=== PATIENT | female | born 1990 | race Caucasian/White ===

== ENCOUNTER 2024-04-04 12:07 | Emergency (ER) | payer OTHER, SELFPAY ==
[2024-04-04 12:09] VITALS: BP 125/89
--- NOTE | 2024-04-04 12:20 | ED.GENMED ---
History of Present Illness
General
Chief Complaint: Eye Problems
Source: patient
Exam Limitations: none
Time Seen by Provider: 04/04/24 12:19
Nursing documentation reviewed up to this point in time: agreed with
History of Present Illness
History of Present Illness:
33 yo female with hx micro adenoma dx 3 yrs ago, presents with sudden left eye vision change an hour ago and then similar change in right eye 30 minutes ago. Developed sudden crescent of zig zag flashing light lateral aspect left eye visual field,
then similar in right eye that has since subsided. Denies H/A or recent head trauma. Denies nausea or blurry or double vision.
Past History
Past History
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
ED Past Surgical History: Tonsilectomy
Social History
Tobacco: Non-smoker
Alcohol: None
Drug: None
Personal:
Living: with family
Employment: Employed
Review of Systems
Review of Systems
Allergies reviewed?: Yes
All Other Systems: ROS reviewed and negative except as documented in HPI and ROS
Constitutional: Denies fever or fatigue
EENT: Reports other (visual changes)
Respiratory: Denies trouble breathing
Cardiac: Denies palpitations
ABD/GI: Denies abdominal pain
: Denies dysuria or difficulty voiding
Musculoskeletal: Reports no symptoms
Skin: Reports no symptoms
Neurological: Denies dizzy, headache, weakness or numbness
Phy Exam
Physical Exam
Physical Exam:
GENERAL: No acute distress. A&Ox3.
CONSTITUTIONAL: Afebrile.
EYES: PERRL, conjunctivae normal, good red reflex bilaterally.
Neck: Supple
ENMT: moist mucus membranes, Pharynx nl, TMs normal
RESPIRATORY: Regular respirations, nonlabored, lungs clear.
CARDIOVASCULAR: Regular rate and rhythm, no murmurs, no rubs.
GI: Soft, nontender, normal BS
MUSCULOSKELETAL: Moves with ease. Well perfused.
SKIN: Warm, dry, pink
PSYCH: Normal mood and affect. Well kept, interactive and appropriate
NEUROLOGIC: Awake, alert and oriented. No focal neurological deficits. Finger to nose intact. Ambulating with steady gait.
Eye Exam
Eye Exam: PERRL, EOMI, cornea clear, conjunctiva normal, disc sharp, globe normal, visual acuity normal and visual alvarez normal
Right 20/: 25
Left 20/: 25
Both 20/: 25
Course
Orders/Labs/Results
Orders:
Orders
04/04/24 12:19
CT Head W/o Iv Contrast Urgent
Comment:
Reason For Exam: visual changes bilaterally
Vital Signs
Initial and Last Documented VS:
Initial Vital Signs
Temp Pulse Resp BP Pulse Ox
98.1 F 66 18 125/89 97
04/04/24 12:09 04/04/24 12:09 04/04/24 12:09 04/04/24 12:09 04/04/24 12:09
Last Documented Vital Signs
Temp Pulse Resp BP Pulse Ox
98.1 F 66 18 125/89 97
04/04/24 12:09 04/04/24 12:09 04/04/24 12:09 04/04/24 12:09 04/04/24 12:09
MDM/Problems Addressed
Differential Diagnosis Includes:
ocular migraine, tumor
MDM/Problems Addressed:
33 yo female with hx micro adenoma dx 3 yrs ago, presents with sudden left eye vision change an hour ago and then similar change in right eye 30 minutes ago. Developed sudden crescent of zig zag flashing light lateral aspect left eye visual field,
then similar in right eye that has since subsided. Denies H/A or recent head trauma. Denies nausea or blurry or double vision.
Head CT neg
Neuro exam is normal
1:00 p.m.
Pt states symptoms are gone completely after Ibuprofen 45 minutes ago
Most likely ocular migraine
*Critical Care Note
Total Time (30-74mins, 75-104mins- exclusive of procedures): Not Applicable
ED Attending Note
-
Portions of this chart may have been created with voice recognition software.� Occasional wrong word or��sound alike� substitutions may have occurred due to the inherent limitations of voice recognition software.
Discharge Plan
Departure
Patient Disposition: Home (Routine Discharge)
Date of Disposition: 04/04/24
Time of Disposition: 13:06
Patient with high blood pressure during this ER visit?: No
Condition: Good
Discharge Problem:
Ocular migraine
Instructions: Migraine in adults
Prescriptions:
No Action
prednisone 10 mg Tablet
See Rx Instructions .ROUTE .COMPLEX Qty: 30 0RF
Rx Instructions:
Take By Mouth:
40 mg daily x3 days, 30 mg daily x3 days,
20 mg daily x3 days, 10 mg daily x3 days.
albuterol sulfate 2.5 mg /3 mL (0.083 %) solution for nebulization
2.5 mg inhalation Q4H PRN (Reason: shortness of breath or wheezing) Qty: 90 0RF
Referrals:
UNKNOWN - PT DOES,NOT KNOW [Family Provider] -
Activity Restrictions/Additional Instructions:
As we discussed, your head CT is normal. You most likely had an ocular migraine.
Interventions
Interventions:
*Risk Screen - Suicide Last Done: 04/04/24 12:09
*General Assessment Last Done: 04/04/24 12:09
*Neglect/Abuse Screening Last Done: 04/04/24 12:09
ED- Fall Risk Assessment Last Done: 04/04/24 13:11
*ED COVID-19 Vaccine History Last Done: 04/04/24 13:11
*Nursing Disposition Last Done: 04/04/24 13:11
Discharge Date and Time
Discharge Date/Time: 04/04/24 13:12
Print Language: [place]
[2024-04-04 12:41] LABS: Glucose - Point of Care 82 mg/dl (70-99)
== END 2024-04-04 13:12 | disposition home or self-care (01) ==
LOC: EMR 12:07
PROVIDERS: EMERGENCY PHYSICIAN Student in an Organized Health Care Education/Training Program
DX: G43.109 Migraine with aura, not intractable, without status migrainosus (principal); Z86.018 Personal history of other benign neoplasm
CPT/HCPCS: 99284; 70450; 82962

== ENCOUNTER 2024-08-21 03:46 | Inpatient (IN) | payer OTHER, SELFPAY ==
[2024-08-20 23:05] VITALS: BP 107/85
[2024-08-20 23:16] VITALS: BMI 28.1
--- NOTE | 2024-08-20 23:20 | ED.GENMED ---
History of Present Illness
General
Chief Complaint: Abdominal Pain
Source: patient
Time Seen by Provider: 08/20/24 23:05
History of Present Illness
History of Present Illness:
33-year-old female presents to the emergency room complaining of severe abdominal pain. Patient states she began having abdominal discomfort at about 8:30 PM. Pain is increased in severity. She has vomited several times. No previous abdominal
operations. No urinary symptoms. Patient was unable to take any oral medication because she's vomiting.
Past History
Past History
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
ED Past Surgical History: Tonsilectomy
Social History
Tobacco: Non-smoker
Alcohol: None
Drug: None
Personal:
Living: with family
Employment: Employed
Phy Exam
Physical Exam
Physical Exam:
General: Awake, Alert, Oriented X3. No acute distress.
Vitals: unremarkable
Head: Atraumatic
Eyes: Pupils equal, EOMI
Throat: Airway intact, no exudates
Neck: Trachea midline
Lungs: Clear and equal b/l
Heart: Regular rate, no murmurs
Abd: Soft, diffusely tender to palpation, No pulsatile mass
Neuro: Nonfocal
Skin: Warm, dry, no rash
Extremities: pulses equal b/l, no edema
Course
Orders/Labs/Results
Orders:
Orders
08/20/24 23:07
HYDROmorphone [Dilaudid] 0.5 mg .ROUTE .STK-MED ONE
08/20/24 23:08
Ondansetron Injectable [Zofran] 4 mg .ROUTE .STK-MED ONE
08/20/24 23:13
Test Result ONCE
08/20/24 23:15
Iohexol [Omnipaque] See Protocol PO NOW STA
08/20/24 23:17
Complete Blood Count/With Diff Urgent
Comprehensive Metabolic Panel Urgent
HCG, Serum Qualitative Screen Urgent
Lipase Urgent
08/20/24 23:22
HYDROmorphone [Dilaudid] 0.5 mg IV NOW STA
08/20/24 23:31
HYDROmorphone [Dilaudid] 0.5 mg IV NOW STA
08/20/24 23:32
Ondansetron Injectable [Zofran] 4 mg IV NOW STA
08/21/24 00:19
HYDROmorphone [Dilaudid] 0.5 mg IV NOW STA
Ketorolac [Toradol] 15 mg IV NOW STA
Ondansetron Injectable [Zofran] 4 mg IV NOW STA
08/21/24 00:33
CT Abd/Pel (IV only)-DH only Urgent
Comment:
Reason For Exam: pain, n/v
Abnormal Lab Results
08/20/24
23:17
WBC 12.8 H 10^3/uL
(4.8-10.8)
Abs Immat Gran (auto) 0.1 H 10^3/uL
(0-0.05)
Absolute Neuts (auto) 9.2 H 10^3/uL
(1.4-6.5)
Absolute Monos (auto) 0.7 H 10^3/uL
(0.1-0.6)
Glucose 120 H mg/dl
(70-99)
Albumin 5.1 H g/dl
(3.5-5.0)
08/20/24 23:17
08/20/24 23:17
Vital Signs
Initial and Last Documented VS:
Initial Vital Signs
Pulse Ox
100
08/20/24 23:04
Last Documented Vital Signs
Pulse Resp BP Pulse Ox
76 16 121/65 98
08/21/24 02:00 08/21/24 02:00 08/21/24 02:00 08/21/24 02:00
ED Attending Note
-
Portions of this chart may have been created with voice recognition software.� Occasional wrong word or��sound alike� substitutions may have occurred due to the inherent limitations of voice recognition software.
Discharge Plan
Departure
Patient Disposition: Admit
Date of Disposition: 08/21/24
Time of Disposition: 02:05
Admit to: Med/Surg
Presentation/result/management discussed w/ accepting MD/DO: Hospitalist
Patient with high blood pressure during this ER visit?: No
Condition: Good
Discharge Problem:
Acute nausea with nonbilious vomiting, Adynamic ileus
Prescriptions:
No Action
prednisone 10 mg Tablet
See Rx Instructions .ROUTE .COMPLEX Qty: 30 0RF
Rx Instructions:
Take By Mouth:
40 mg daily x3 days, 30 mg daily x3 days,
20 mg daily x3 days, 10 mg daily x3 days.
albuterol sulfate 2.5 mg /3 mL (0.083 %) solution for nebulization
2.5 mg inhalation Q4H PRN (Reason: shortness of breath or wheezing) Qty: 90 0RF
Referrals:
UNKNOWN - PT NOT,INTERVIEWE [Family Provider] -
Activity Restrictions/Additional Instructions:
CT scan report suggests have an gastroenteritis or ileus. I would not push fluids at this time. Give your bowel some time to rest. Start with ice chips in the morning. Gradually increase your intake if you are tolerating it. Return to the
emergency room if you are unable to tolerate oral intake, the pain is unbearable refill your not doing well in any way.
Interventions
Interventions:
*Risk Screen - Suicide Last Done: 08/20/24 23:34
*General Assessment Last Done: 08/20/24 23:22
*Neglect/Abuse Screening Last Done: 08/20/24 23:34
ED- Fall Risk Assessment Last Done: 08/21/24 00:09
*ED COVID-19 Vaccine History Last Done: 08/20/24 23:21
ZW-Xzxddg-Wrsqkjgogf Assessment Last Done: 08/20/24 23:35
Discharge Date and Time
Print Language: [place]ESE
[2024-08-20] MEDS: DILAUDID 0.5 MG IV ×2 (23:30→23:31)
[2024-08-20] MEDS: OMNIPAQUE 50 ML PO (23:30)
[2024-08-20] MEDS: ZOFRAN 4 MG IV (23:32)
[2024-08-20 23:34] LABS: % Basophils 0.2 % (0-2); % Eosinophils 0.5 % (0-6); % Immature Granulocytes 0.4 % (0-0.5); % Lymphocytes 21.5 % (20.5-51.1); % Monocytes 5.2 % (1.7-9.3); % Neutrophils 72.2 % (42.2-75.2); Absolute Eosinophils 0.1 10^3/uL (0-0.7); Absolute Immature Granulocytes 0.1 10^3/uL (0-0.05); Absolute Lymphocytes 2.8 10^3/uL (1.2-3.4); Absolute Monocytes 0.7 10^3/uL (0.1-0.6); Absolute Neutrophils 9.2 10^3/uL (1.4-6.5); Hematocrit 40.5 % (37.0-47.0); Hemoglobin 13.4 g/dL (12.0-16.0); Mean Corp Hgb Conc. 33.1 g/dL (33.0-37.0); Mean Corpuscular Hgb 28.3 pg (27.0-31.0); Mean Corpuscular Volume 85.4 fL (81.0-99.0); Mean Platelet Volume 10.2 fL (7.4-10.4); Nucleated Red Blood Cells % 0 %; Platelet Count 279 10^3/uL (130-400); Red Blood Cell Count 4.74 10^6/uL (4.20-5.40); Red Cell Dist. Width 12.6 % (11.5-14.5); White Blood Cell Count 12.8 10^3/uL (4.8-10.8)
[2024-08-20 23:41] LABS: ALT (SGPT) 20 U/L (0-35); AST (SGOT) 27 U/L (14-36); Albumin 5.1 g/dl (3.5-5.0); Alkaline Phosphatase 75 U/L (38-126); Blood Urea Nitrogen 16 mg/dl (7-17); Calcium 9.8 mg/dl (8.4-10.2); Carbon Dioxide 24 mmol/L (22-30); Chloride 100 mmol/L (98-107); Estimated Creatinine Clearance 118 ml/min; Glucose 120 mg/dl (70-99); Lipase 57 U/L (23-300); Potassium 3.9 mmol/L (3.5-5.1); Sodium 136 mmol/L (135-145); Total Bilirubin 0.4 mg/dl (0.2-1.3); eGFR > 60.00
[2024-08-20 23:46] LABS: HCG, Serum Qualitative Screen Negative
[2024-08-21] VITALS (8 sets, daily range): BP systolic 83–122; BP diastolic 53–78; BMI 29.0
[2024-08-21] MEDS: ZOFRAN 4 MG IV ×3 (00:31→12:16)
[2024-08-21] MEDS: TORADOL 15 MG IV ×2 (00:31→20:33)
[2024-08-21] MEDS: DILAUDID 0.5 MG IV ×3 (00:32→15:57)
--- NOTE | 2024-08-21 03:30 | HPS.HSE ---
Family Physician
-
Family Physician: INTERVIEWE UNKNOWN - PT NOT
Chief Complaint
-
Abd Pain, N/V
History of Present Illness
Patient is a 33y F with PMH significant for pituitary microadenoma who presents to ED complaining of abd pain and N/V. Patient states that she started to have nausea and some crampy abdominal pain last PM. She has had multiple episodes of
forceful / projectile emesis throughout the day today with increasing amounts of diffuse abdominal pain - mostly on the R. Patient states that she had her last BM yesterday - but this was small volume and she had to strain to produce this. Patient
denies any prior history of similar symptoms.
She denies any fevers / chills, cough, dyspnea, etc.
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
Medical History
Past Medical History
Past Medical History: Reports Other
Additional Past Medical History:
Pituitary Microadenoma
Past Surgical History: Reports Other
Additional Past Surgical History:
T&A
Social History
Tobacco: Non-smoker
Alcohol: None
Drug: None
Personal:
Family History
Family History: Other (Father: HTN Mother: GERD / Cox's, A-Fib)
Allergies / Home Medications
Allergies reflects when Allergies were last updated in [facility].
Home Medications with original date entered in [facility]
Allergy/Medication List:
Allergies
Allergy/AdvReac Type Severity Reaction Status Date / Time
No Known Allergies Allergy Verified 08/21/24 00:25
Home Medications
No Meds [No Current Medications] 08/21/24
Review of Systems
-
History Source: Patient
A 12 point ROS was completed and negative except as noted: Yes
Constitutional: Denies Fever or Chills
Respiratory: Denies Cough or Trouble Breathing
Cardiac: Denies Chest Pain or Palpitations
Abdomen/GI: Reports Abdominal Pain, Nausea, Vomiting and Constipated
: Denies Dysuria, Frequency or Flank Pain
Musculoskeletal: Denies Joint Pain or Edema
Neurological: Denies Dizzy or Headache
Psych: Denies Depression or Anxiety
Physical Exam
Vital Signs
Vital Signs
Pulse Resp BP Pulse Ox
79 15 83/70 98
08/21/24 03:00 08/21/24 03:00 08/21/24 03:00 08/21/24 03:00
Physical Exam
General: Other (33y F in mild - moderate distress due to abdominal pain and nausea.)
HEENT: Moist mucous membranes and PERRLA
Respiratory: Clear; No Wheezes, Rales or Rhonchi
Cardiac: S1/S2 and Regular Rhythm; No Murmur
GI: Other (Abdomen is soft. Bowel sounds are diminished. Tenderness mostly on the R without rebound / guarding.)
Musculoskeletal: No Clubbing, No Cyanosis and No Edema
Neuro: AO x 3
Laboratory Results
-
08/20/24 23:17
08/20/24 23:17
Laboratory Results
Total Bilirubin 0.4 mg/dl (0.2-1.3) 08/20/24 23:17
AST 27 U/L (14-36) 08/20/24 23:17
ALT 20 U/L (0-35) 08/20/24 23:17
Alkaline Phosphatase 75 U/L (38-126) 08/20/24 23:17
Lipase 57 U/L (23-300) 08/20/24 23:17
Impression/Plan
-
A/P: Patient is a 33y F with PMH significant for pituitary microadenoma who presents to ED complaining of abdominal pain and N/V.
Adynamic Ileus / Functional Bowel Obstruction
- Admit for further evaluation and treatment.
- CT scan in the ED this evening shows significant bowel distention of the R colon and proximal into the mid-distal small bowel.
- No specific transition point / obstruction is identified.
- Stool throughout the L colon.
- Continue supportive care including antiemetics, pain control, IVFs, etc.
- Trial of enema to alleviate constipation / encourage passage of stool.
- Follow for clinical improvement.
- Consider NG decompression if persistent pain / nausea.
- GI evaluation for additional recommendations.
DVT Prophylaxis: SCDs
Code Status: Full
[2024-08-21] MEDS: COMPAZINE 10 MG IV (03:41)
[2024-08-21 04:17] LABS: Lactic Acid 1.1 mmol/L (0.7-2.0)
[2024-08-21] MEDS: NSS 1000 IV (06:13)
--- NOTE | 2024-08-21 06:28 | PTCARENOTE ---
Pt arrived at from ED at 0600. Pt was able to ambulate to bed. VSS. no complaints of pain. Pt nauseous (see mar). IV bolus infusing. oriented to room and call nicloe. bed in lowest position and locked. care ongoing.
[2024-08-21 07:22] LABS: Blood Urea Nitrogen 19 mg/dl (7-17); Calcium 8.3 mg/dl (8.4-10.2); Carbon Dioxide 23 mmol/L (22-30); Chloride 104 mmol/L (98-107); Estimated Creatinine Clearance > 125 ml/min; Glucose 105 mg/dl (70-99); Potassium 4.2 mmol/L (3.5-5.1); Sodium 136 mmol/L (135-145); eGFR > 60.00
[2024-08-21 07:41] LABS: Hematocrit 35.3 % (37.0-47.0); Hemoglobin 11.8 g/dL (12.0-16.0); Mean Corp Hgb Conc. 33.4 g/dL (33.0-37.0); Mean Corpuscular Hgb 28.6 pg (27.0-31.0); Mean Corpuscular Volume 85.7 fL (81.0-99.0); Red Blood Cell Count 4.12 10^6/uL (4.20-5.40); Red Cell Dist. Width 12.7 % (11.5-14.5); White Blood Cell Count 6.1 10^3/uL (4.8-10.8)
--- NOTE | 2024-08-21 08:01 | W.PN.HOSP.TC ---
Today's Communication/Plan
-
Clear liquid diet
If vomits consider NG tube
Supportive treatment
Assessment / Plan
Assessment / Plan
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 Had a nicole movement on 124. Small volume.
CT abdomen and pelvis-Mild circumferential wall thickening of proximal small bowel as described above. New. This may be peristalsis. Enteritis is possible as well. Differential diagnoses of bowel wall thickening include infection, inflammation and
less likely ischemia. No evidence of intestinal obstruction.
CVS: S1-S2 normal
Chest: CTA B/L
Abdomen: Soft, NT / Bowel sounds present
Extremities: No edema, normal pulses
# Nausea and vomiting
Possible gastroenteritis , norovirus
Unfortunately kits are not available for testing now. There are multiple cases in the hospital at present with norovirus
Symptomatic treatment
GI has been consulted
If vomiting is persisting consider NG tube decompression
Agree with clear liquid diet
# Constipation resolved
# History of pituitary tumor-diagnosed about 4 years ago when she all of a sudden started lactating. Prolactin level was high had seen endocrine they suggested that she could go on a medicine (? Bromocriptine).
She did not have a chance to follow-up. She never went on the medicine yet her prolactin levels came down.
Discussed with patient to follow-up with endocrine again and also get a repeat MRI and follow prolactin.
# DVT prophylaxis-SCDs
# Full code
Discussed with GI
Discussed with nursing
Anticipated Discharge: Within 24 hours
Subjective/Interval History
-
Date of Service: August 21, 2024
Objective Data
-
Labs:
Laboratory Results
08/20/24 08/21/24
23:17 06:05
WBC 12.8 H 6.1
Hgb 13.4 11.8 L
Hct 40.5 35.3 L
Plt Count 279 Pending
Sodium 136 136
Potassium 3.9 4.2
Chloride 100 104
Carbon Dioxide 24 23
BUN 16 19 H
Creatinine 0.8 0.6
Glucose 120 H 105 H
Calcium 9.8 8.3 L D
Total Bilirubin 0.4
AST 27
ALT 20
Alkaline Phosphatase 75
Vital Signs:
Vital Signs
Temp Pulse Resp BP Pulse Ox
99.2 F 92 16 98/61 96
08/21/24 07:00 08/21/24 07:00 08/21/24 07:00 08/21/24 07:00 08/21/24 07:00
--- NOTE | 2024-08-21 08:42 | CON.GI ---
Addendum entered and electronically signed by Suki Moya DO 08/21/24 14:56:
Patient seen examined independently of DIANA. I agree with her note with my additions below
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 She does have chronic GI
symptoms which are generally postprandial cramping nausea and diarrhea after a salty fatty or fried food or along with significant anxiety. This episode was different. The pain was diffuse along with pressure and bloating and dizziness found to
have an elevated white count of 12.8 along with a blood pressure of 83/70 and no fever but temperature in the 99s. Last episode of vomiting was this morning. Has persistent nausea but is improving. Has not had any diarrhea.
At baseline she has about 10 days of diarrhea a month. She already made an appointment with our office to discuss her chronic symptoms as well as her family history of Daley's and esophageal cancer.
She has been getting IV fluids. Her white count has improved to 6.1, her LFTs admission were normal. Her BUN at 19. Lipase normal at 57 negative test.
She did undergo a CT abdomen pelvis with IV contrast only due to the abdominal pain and vomiting. Liver, spleen, gallbladder and pancreas are unremarkable. Normal terminal ileum and bowel loops but did have some moderate circumferential wall
thickening of the proximal jejunum up roughly 20 cm in length. No evidence of obstruction. No p.o. contrast was given
# Nausea vomiting abdominal pain without diarrhea with 20 cm of proximal jejunal thickening
-- More likely viral due to the acute onset as well as multiple sick contacts while working in the emergency room, especially norovirus. Other etiologies could be inflammatory like Crohn's disease, vasculitis/other inflammatory issues however due
to the acuity this is most likely infectious.
-- Check stools for norovirus if she has any
-- Antiemetics and IV fluids
-- hopefully home tomorrow, treat with supportive care
-- Outpatient follow-up for her chronic symptoms and depending on her symptoms may consider repeat small bowel imaging
-- will see her tomorrow if symptoms persist, follow-up outpatient. States she already has an appointment
Original Note:
Consultation
-
Date/Time Consultation Requested: 08/21/24 0600
Date/Time Consultation Performed: 08/21/24 0840
Requesting Provider: Dom Huggins DO
Performing Provider: DIANA Fernandez, Suki Moya DO
Reason for Consultation: abdominal pain, nausea/ vomiting
Medical History
Chief Complaint / HPI
Chief Complaint: abdominal pain, nausea, vomiting
History of Present Illness:
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 Abdominal pain was diffuse with pressure in chest and + bloating and dizziness. On
admission noted with WBC 12.[address] pending but reported ileus picture with right colon and mid SB distention. Pt was given enema in ER with improvement. Pt admits to some chronic GERD and intermittent diarrhea and was planning
on GI follow up. She had hx EGD at age 12 with noted gastritis. No hx colonoscopy in past. Pt denies hematemesis or rectal bleeding.
Past Medical History
Past Medical History: Other (pituitary microadenoma )
Past Surgical History: Tonsilectomy
Social History
Tobacco: Non-Smoker
Alcohol: Occasional (rare)
Drug: None
Personal:
Living: With Family
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
Family History
Family History: Other (mother with hx daley's no family hx )
Allergies / Home Medications
Allergy/AdvReac Type Severity Reaction Status Date / Time
No Known Allergies Allergy Verified 08/21/24 00:25
�Medication �Instructions �Recorded
No Meds [No Current Medications] 08/21/24
Review of Systems
-
History Source: Patient
Constitutional: Reports Fatigue
EENT: Reports No Symptoms
Respiratory: Reports No Symptoms
Abdomen/GI: Reports Abdominal Pain, Nausea, Vomiting, Diarrhea and Constipated
: Reports No Symptoms
Musculoskeletal: Reports No Symptoms
Neurological: Reports Dizzy
Endocrine: Reports No Symptoms
Hematologic/Lymphatic: Reports No Symptoms
Vital Signs
Temp Pulse Resp BP Pulse Ox
99.2 F 92 16 98/61 96
08/21/24 07:00 08/21/24 07:00 08/21/24 07:00 08/21/24 07:00 08/21/24 07:00
Physical Exam
Exam
General: Well Developed, Well Nourished and No Apparent Distress
HEENT: Normocephalic
Respiratory: Clear
Cardiac: Regular Rhythm
GI: Soft, Non Distended and Tender (diffuse )
Musculoskeletal: No Clubbing and No Cyanosis
Skin: Warm and Dry
Neuro: Awake, Alert and AO x 3
Psych: Calm
Results
WBC 6.1 10^3/uL (4.8-10.8) 08/21/24 06:05
Hgb 11.8 g/dL (12.0-16.0) L 08/21/24 06:05
Hct 35.3 % (37.0-47.0) L 08/21/24 06:05
MCV 85.7 fL (81.0-99.0) 08/21/24 06:05
Plt Count 279 10^3/uL (130-400) 08/20/24 23:17
Absolute Neuts (auto) 9.2 10^3/uL (1.4-6.5) H 08/20/24 23:17
Sodium 136 mmol/L (135-145) 08/21/24 06:05
Potassium 4.2 mmol/L (3.5-5.1) 08/21/24 06:05
Chloride 104 mmol/L (98-107) 08/21/24 06:05
Carbon Dioxide 23 mmol/L (22-30) 08/21/24 06:05
BUN 19 mg/dl (7-17) H 08/21/24 06:05
Creatinine 0.6 mg/dL (0.6-1.0) 08/21/24 06:05
Calcium 8.3 mg/dl (8.4-10.2) L D 08/21/24 06:05
Total Bilirubin 0.4 mg/dl (0.2-1.3) 08/20/24 23:17
AST 27 U/L (14-36) 08/20/24 23:17
ALT 20 U/L (0-35) 08/20/24 23:17
Alkaline Phosphatase 75 U/L (38-126) 08/20/24 23:17
Lipase 57 U/L (23-300) 08/20/24 23:17
Diagnostic Image Results:
CT pending
Prior GI Procedures:
EGD: age 12 gastritis
Colonoscopy: none
Assessment / Plan
-
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 Abdominal pain was diffuse with pressure in chest and + bloating and dizziness. On
admission noted with WBC 12.[address] pending but reported ileus picture with right colon and mid SB distention. Pt was given enema in ER with some improvement. Pt admits to some chronic GERD and intermittent diarrhea and was
planning on GI follow up. She had hx EGD at age 12 with noted gastritis.
-acute onset of nausea, vomiting, abdominal pain, diarrhea with bloating and constipation
-Ct with right colon and SB distention
-hypotension
-leukocytosis
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
-pituitary adenoma
-chronic GERD
PLAN:
etiology of symptoms related to norovirus with sudden onset and likely work exposure, vs other infectious diarrhea, celiac with some chronic diarrhea vs other
check norovirus if able (per Dr. Hewitt there was shortage to testing kits in lab), check stool studies, celiac
await final reading of CT
ok for trial of clear as tolerated
if increase nausea and vomiting can place NGT
supportive care cont IVF
reviewed with nursing staff of isolation
OP GI follow up for chronic issues with GERD, diarrhea
reviewed with Dr. Hewitt
-
-
Thank you for consultation and allowing me to participate in the patient's care. Please call the communication professor GI physician during the after hours with any questions or concerns.
[2024-08-21] MEDS: LR 1000 IV ×3 (08:54→23:22)
[2024-08-21] MEDS: PROTONIX IV 40 MG IV (08:55)
[2024-08-21] MEDS: NSS (PRESERVATIVE FREE) 10 ML IV (08:55)
[2024-08-21 09:01] LABS: Mean Platelet Volume 10.1 fL (7.4-10.4); Platelet Count 183 10^3/uL (130-400)
--- NOTE | 2024-08-21 11:41 | CM ---
CM following re: discharge planning.
Reviewed pt's chart, met with pt.
Pt is a 33 year old female, admitted with primary dx of acute onset of nausea, vomiting, abdominal pain, diarrhea with bloating and constipation.
Pt reports she lives with 1SH, no steps, has no children. Pt described herself as independent in all [employer], drives, works.
PCP: Yelena Marquez
Pharmacy: [facility]
D/C plan: home with anticipated no needs. Family to transport at discharge.
CM will follow with discharge plan updates as needed.
[2024-08-21] MEDS: TYLENOL 650 MG PO (15:58)
[2024-08-21 17:11] LABS: Vitamin D, 25-OH*** 17.2 ng/mL (30-80)
[2024-08-21 17:24] LABS: TSH 0.77 uIU/ml (0.47-4.68)
[2024-08-22 03:35] LABS: IgA 269 mg/dl (70-400)
[2024-08-22 07:30] VITALS: BP 109/59
[2024-08-22] MEDS: NSS (PRESERVATIVE FREE) 10 ML IV (08:00)
[2024-08-22] MEDS: PROTONIX IV 40 MG IV (08:00)
[2024-08-22] MEDS: LR 1000 IV (08:04)
[2024-08-22 08:35] LABS: Hemoglobin 10.7 g/dL (12.0-16.0); Mean Corp Hgb Conc. 32.4 g/dL (33.0-37.0); Mean Corpuscular Hgb 28.5 pg (27.0-31.0); Mean Corpuscular Volume 87.8 fL (81.0-99.0); Mean Platelet Volume 10.3 fL (7.4-10.4); Platelet Count 159 10^3/uL (130-400); Red Blood Cell Count 3.76 10^6/uL (4.20-5.40); White Blood Cell Count 3.4 10^3/uL (4.8-10.8)
[2024-08-22 09:07] LABS: ALT (SGPT) 13 U/L (0-35); AST (SGOT) 21 U/L (14-36); Albumin 2.9 g/dl (3.5-5.0); Alkaline Phosphatase 45 U/L (38-126); Blood Urea Nitrogen 10 mg/dl (7-17); Carbon Dioxide 25 mmol/L (22-30); Chloride 104 mmol/L (98-107); Estimated Creatinine Clearance > 125 ml/min; Glucose 86 mg/dl (70-99); Potassium 3.9 mmol/L (3.5-5.1); Sodium 133 mmol/L (135-145); Total Bilirubin 0.3 mg/dl (0.2-1.3); Total Protein 5.3 g/dl (6.3-8.2); eGFR > 60.00
[2024-08-22] MEDS: TORADOL 15 MG IV (09:55)
--- NOTE | 2024-08-22 11:20 | W.PN.HOSP.TC ---
Addendum entered and electronically signed by Jair Hewitt MD 08/22/24 11:23:
Vitamin D deficiency-replace
Slight drop in hemoglobin likely hemodilution with IV fluids no bleeding
Original Note:
Today's Communication/Plan
-
Full liquids for breakfast and low residue for lunch
If tolerating discharge
Assessment / Plan
Assessment / Plan
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 Had a nicole movement on 124. Small volume.
CT abdomen and pelvis-Mild circumferential wall thickening of proximal small bowel as described above. New. This may be peristalsis. Enteritis is possible as well. Differential diagnoses of bowel wall thickening include infection, inflammation and
less likely ischemia. No evidence of intestinal obstruction.
CVS: S1-S2 normal
Chest: CTA B/L
Abdomen: Soft, NT / Bowel sounds present
Extremities: No edema, normal pulses
# Nausea and vomiting
Possible gastroenteritis , norovirus
Vomiting and diarrhea resolved therefore not able to collect a sample
Advance diet to full liquids for breakfast and low residual for lunch
# Constipation resolved
# History of pituitary tumor-diagnosed about 4 years ago when she all of a sudden started lactating. Prolactin level was high had seen endocrine they suggested that she could go on a medicine (? Bromocriptine).
She did not have a chance to follow-up. She never went on the medicine yet her prolactin levels came down.
Discussed with patient to follow-up with endocrine again and also get a repeat MRI and follow prolactin.
# DVT prophylaxis-SCDs
# Full code
Discussed with GI
Discussed with nursing
Anticipated Discharge: Today
Subjective/Interval History
-
Date of Service: August 22, 2024
Objective Data
-
Labs:
Laboratory Results
08/22/24
07:30
WBC 3.4 L
Hgb 10.7 L
Hct 33.0 L
Plt Count 159
Sodium 133 L
Potassium 3.9
Chloride 104
Carbon Dioxide 25
BUN 10
Creatinine 0.6
Glucose 86
Calcium 8.0 L
Total Bilirubin 0.3
AST 21
ALT 13
Alkaline Phosphatase 45
Vital Signs:
Vital Signs
Temp Pulse Resp BP Pulse Ox
97.9 F 66 18 109/59 97
08/22/24 07:30 08/22/24 07:30 08/22/24 07:30 08/22/24 07:30 08/22/24 07:30
I&O
08/21/24 08/22/24 08/23/24
06:59 06:59 06:59
Intake Total 2220 / 2220 480 / 480
Balance 2220 / 2220 480 / 480
--- NOTE | 2024-08-22 11:23 | W.DS.TRANS ---
Addendum entered and electronically signed by Jair Hewitt MD 08/23/24 08:32:
Dictation- [id number]
Original Note:
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
-
Discharge Instructions:
Discharge Diagnosis/Procedures Gastroenteritis
Pituitary tumor
Diet As tolerated
Activity As tolerated
Driving Restrictions As prior to admission
Instructions:
Stand-Alone Forms:
Changes to Home Medications: Yes
Discharge Medications:
DC Medications w/original date entered in [employer]
cholecalciferol (vitamin D3) 50 mcg (2,000 unit) capsule 50 mcg PO DAILY Supplement #30 caps 08/22/24
Home Medication Changes
vit d new
Pending Results: No
[2024-08-22] MEDS: DRISDOL (VITAMIN D2) 50000 UNITS PO (12:03)
--- NOTE | 2024-08-22 12:42 | W.PN.GI.CBS2 ---
Today's Communication / Plan
-
Tolerating diet
Ok from GI perspective for hosp d/c
She will FU with GI OP basis
Assessment / Plan
-
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 Abdominal pain was diffuse with pressure in chest and + bloating and dizziness. On
admission noted with WBC 12.[address] pending but reported ileus picture with right colon and mid SB distention. Pt was given enema in ER with some improvement. Pt admits to some chronic GERD and intermittent diarrhea and was
planning on GI follow up. She had hx EGD at age 12 with noted gastritis.
-acute onset of nausea, vomiting, abdominal pain, diarrhea with bloating and constipation
-Ct with right colon and SB distention
-hypotension
-leukocytosis
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
-pituitary adenoma
-chronic GERD
PLAN:
- Tolerating diet
- No diarrhea during admission so stool studies not yet sent
- At this juncture given improvement ok from GI perspective for hosp d/c
- She has OP FU in our GI office
Above d/w hospitalist. GI will sign off please call for ?
Subjective
Subjective
Date of Service: August 22, 2024
Abd pain much improved. Denies N/V. No diarrhea since admission so no stool studies able to be sent off.
Objective
Data Reviewed
Laboratory Data:
Laboratory Results
08/22/24 07:30
08/22/24 07:30
Laboratory Results
Total Bilirubin 0.3 mg/dl (0.2-1.3) 08/22/24 07:30
AST 21 U/L (14-36) 08/22/24 07:30
ALT 13 U/L (0-35) 08/22/24 07:30
Alkaline Phosphatase 45 U/L (38-126) 08/22/24 07:30
Lipase 57 U/L (23-300) 08/20/24 23:17
Vital Signs and I&O:
Vital Signs
Temp Pulse Resp BP Pulse Ox
97.9 F 66 18 109/59 97
08/22/24 07:30 08/22/24 07:30 08/22/24 07:30 08/22/24 07:30 08/22/24 07:30
I&O
08/21/24 08/22/24 08/23/24
06:59 06:59 06:59
Intake Total 2220 / 2220 480 / 480
Balance 2220 / 2220 480 / 480
Physical Exam
Physical Exam
GEN: No acute distress, conversant, pleasant
HEENT: anicteric, extraocular movements intact, clear oropharynx without exudates
GI: soft, obese non-distended, not tender to palpation, normal active bowel sounds, no hepatosplenomegaly
EXT: warm, well perfused, no edema bilaterally
NEURO: AAOx3, non-focal
--- NOTE | 2024-08-22 13:18 | CM ---
Reviewed the chart notes and spoke with the patient and spouse at the bedside. Patient's spouse will provide transportation home today. CM continues to be available to patient/family and is monitoring medical plan for needs at discharge.
Plan: Discharge to home with no needs today.
[2024-08-22 13:22] VITALS: BP 116/74
[2024-08-22 14:58] LABS: tTG IgA Antibody 5.3 EU/ml (0-19); tTG IgG Antibody 9.4 EU/ml (0-19)
[2024-08-24 02:06] LABS: Endomysial IgA Antibody Titer <1:10 (<1:10)
== END 2024-08-22 13:38 | disposition home or self-care (01) | DRG 392 ==
LOC: 2 NORTH 03:46
PROVIDERS: Nurse Practitioner Adult Health; ADMITTING PHYSICIAN Hospitalist; ATTENDING PHYSICIAN Hospitalist; CONSULT PHYSICIAN Internal Medicine; EMERGENCY PHYSICIAN Emergency Medicine
DX: K52.9 Noninfective gastroenteritis and colitis, unspecified (principal); D35.2 Benign neoplasm of pituitary gland; K21.9 Gastro-esophageal reflux disease without esophagitis; Z82.49 Family history of ischemic heart disease and other diseases of the circulatory system; E55.9 Vitamin D deficiency, unspecified
CPT/HCPCS: 74177; 80048; 80053; 82306; 82784; 83516; 83605; 83690; 84443; 84703; 85025; 85027; 86140; 86231; 96374; 96375; 96376; 99285; Q9967

== ENCOUNTER 2024-10-10 18:42 | Emergency (ER) | payer OTHER, SELFPAY ==
--- NOTE | 2024-10-10 18:53 | ED.GENMED ---
History of Present Illness
General
Chief Complaint: Abdominal Symptoms
Source: patient
Exam Limitations: none
Time Seen by Provider: 10/10/24 18:46
Nursing documentation reviewed up to this point in time: agreed with
History of Present Illness
History of Present Illness:
Patient to ED with complaint of severe abdominal pain. REports pain is epigastric and radiates up into chest. SHe was admitted here in Aug with similar event. Diagnosed with enteritis vs early ileus. SHe states pain feels the same tonight. NO
fever/chills, recent illness. No v/d. Reports nausea.
Past History
Past History
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
ED Past Surgical History: Tonsilectomy
Social History
Tobacco: Non-smoker
Alcohol: None
Drug: None
Personal:
Living: with family
Employment: Employed
Review of Systems
Review of Systems
Allergies reviewed?: Yes
All Other Systems: ROS reviewed and negative except as documented in HPI and ROS
Constitutional: Reports no symptoms
EENT: Reports no symptoms
Respiratory: Reports no symptoms
Cardiac: Reports no symptoms
ABD/GI: Reports abdominal pain
: Reports no symptoms
Musculoskeletal: Reports no symptoms
Skin: Reports no symptoms
Neurological: Reports no symptoms
Psychiatric: Reports no symptoms
Phy Exam
General Physical Exam
General Presentation: moderate distress
General age: appears stated age
General Skin: warm and dry
General Habitus: normal
General Mental: alert
Cardiovascular Exam
Cardiovascular Exam: regular rate/rhythm and no edema
Pulmonary Exam
Pulmonary Exam: no respiratory distress and chest non tender
Gastrointestinal Exam
Gastrointestinal Exam: soft, no organomegaly, non distended and no cva tenderness
Palpation: left upper quadrant: Moderate tenderness, left lower quadrant: No tenderness, right upper quadrant: Moderate tenderness and right lower quadrant: No tenderness
Musculoskeletal Exam
Musculoskeletal Exam: full ROM
Skin Exam
Skin Exam: normal color, warm/dry and no rash
Psychiatric Exam
Psychiatric Exam: normal mood/affect
Course
Orders/Labs/Results
Orders:
Orders
10/10/24 18:47
0.9% Sodium Chloride 1000 ml [Nss] 1,000 ml IV BOLUS
Test Result ONCE
10/10/24 18:48
CT Abd/pel W Iv And Oral Contr Urgent
Comment:
Reason For Exam: diffuse abd. pain
Iohexol [Omnipaque] See Protocol PO NOW STA
10/10/24 18:52
HYDROmorphone [Dilaudid] 0.5 mg IV NOW STA
Ondansetron Injectable [Zofran] 4 mg IV NOW STA
10/10/24 18:56
Complete Blood Count/With Diff Urgent
Comprehensive Metabolic Panel Urgent
HCG, Serum Qualitative Screen Urgent
Lipase Urgent
10/10/24 19:23
Urinalysis Reflex To Culture Urgent
Date Specimen was Collected: 10/10/24
Time Specimen was Collected: 19:21
Urine Microscopic Reflex Cult Urgent
10/10/24 20:10
HYDROmorphone [Dilaudid] 0.5 mg IV NOW STA
10/10/24 22:05
Sucralfate Suspension [Carafate Suspension] 1 gm PO NOW STA
Abnormal Lab Results
10/10/24 10/10/24
18:56 19:23
MCHC 32.6 L g/dL
(33.0-37.0)
Ur Occult Blood Reflex 1+ A
(Negative)
Urine Bacteria (Reflex) Few A
(Negative)
10/10/24 18:56
10/10/24 18:56
Vital Signs
Initial and Last Documented VS:
Initial Vital Signs
Pulse Pulse Ox
69 98
10/10/24 18:44 10/10/24 18:44
Last Documented Vital Signs
Temp Pulse Resp BP Pulse Ox
98.7 F 68 21 134/87 99
10/10/24 19:27 10/10/24 21:45 10/10/24 21:45 10/10/24 21:33 10/10/24 21:45
*Radiology
Radiology exam reviewed: radiology read reviewed
*Pulse Oximetry
Patient hypoxic: no
*Critical Care Note
Total Time (30-74mins, 75-104mins- exclusive of procedures): Not Applicable
Update Note
Update Note:
Labs, CT report reviewed with patient. Will start on carafate 4 times daily. Given 1st dose in ED with improvement of symtpoms. Dr. Garrido consulted on patient presentation and CT findings. Recommends adding Protonix 40mg bid. Rx sent to
pharmacy. She will follow up in office with patient next week. Patient given isntructions ons/s to return to ED and she is agreeable toplan.
ED Attending Note
-
Portions of this chart may have been created with voice recognition software.� Occasional wrong word or��sound alike� substitutions may have occurred due to the inherent limitations of voice recognition software.
Discharge Plan
Departure
Patient Disposition: Home (Routine Discharge)
Date of Disposition: 10/10/24
Time of Disposition: 22:09
Patient with high blood pressure during this ER visit?: No
Condition: Good
Covid-19: Not Applicable
Discharge Problem:
Abdominal pain, Esophagitis, Gastritis
Instructions: Esophagitis, Abdominal Pain
Prescriptions:
New
sucralfate [Carafate] 1 gram tablet
1 g PO ACHS Qty: 120 0RF
No Action
cholecalciferol (vitamin D3) 50 mcg (2,000 unit) capsule
50 mcg PO DAILY Qty: 30 0RF
Referrals:
Naheed Martinez, DO [Family Provider] -
Activity Restrictions/Additional Instructions:
Return to the emergency department immediately for any changes in/worsening of your symptoms.
Interventions
Interventions:
*Risk Screen - Suicide Last Done: 10/10/24 19:17
*Neglect/Abuse Screening Last Done: 10/10/24 19:17
*ED COVID-19 Vaccine History Last Done: 10/10/24 19:16
*Nursing Disposition Last Done: 10/10/24 22:56
LR-Udjjwz-Zphtrodjyp Assessment Last Done: 10/10/24 19:14
Discharge Date and Time
Discharge Date/Time: 10/10/24 22:57
Print Language: GREEK
[2024-10-10 19:00] VITALS: BP 117/75
[2024-10-10] MEDS: OMNIPAQUE 50 ML PO (19:10)
[2024-10-10] MEDS: NSS 1000 IV (19:10)
[2024-10-10] MEDS: ZOFRAN 4 MG IV (19:11)
[2024-10-10] MEDS: DILAUDID 0.5 MG IV ×2 (19:11→20:12)
[2024-10-10 19:32] LABS: Urine Albumin Negative (Neg - Trace); Urine Bilirubin Negative (Negative); Urine Character Clear (Clear); Urine Color Yellow; Urine Glucose Negative (Negative); Urine Ketone Negative (Negative); Urine Leukocyte Negative (Negative); Urine Nitrite Negative (Negative); Urine Occult Blood 1+ (Negative); Urine Specific Gravity 1.005 (<1.030); Urine Urobilinogen Negative (Neg - 1+)
[2024-10-10 19:32] LABS: % Basophils 0.4 % (0-2); % Eosinophils 0.8 % (0-6); % Immature Granulocytes 0.3 % (0-0.5); % Lymphocytes 30.8 % (20.5-51.1); % Monocytes 8.1 % (1.7-9.3); % Neutrophils 59.6 % (42.2-75.2); Absolute Eosinophils 0.1 10^3/uL (0-0.7); Absolute Lymphocytes 2.4 10^3/uL (1.2-3.4); Absolute Monocytes 0.6 10^3/uL (0.1-0.6); Absolute Neutrophils 4.7 10^3/uL (1.4-6.5); Hematocrit 37.1 % (37.0-47.0); Hemoglobin 12.1 g/dL (12.0-16.0); Mean Corp Hgb Conc. 32.6 g/dL (33.0-37.0); Mean Corpuscular Hgb 28.1 pg (27.0-31.0); Mean Corpuscular Volume 86.1 fL (81.0-99.0); Mean Platelet Volume 9.9 fL (7.4-10.4); Nucleated Red Blood Cells % 0 %; Platelet Count 245 10^3/uL (130-400); Red Blood Cell Count 4.31 10^6/uL (4.20-5.40); Red Cell Dist. Width 13.5 % (11.5-14.5); White Blood Cell Count 7.8 10^3/uL (4.8-10.8)
[2024-10-10 19:39] LABS: Urine Squamous Cell >30 /LPF (Few)
[2024-10-10 19:40] LABS: HCG, Serum Qualitative Screen Negative
[2024-10-10 19:40] LABS: Urine Red Blood Cell 0-2 /HPF (0-2)
[2024-10-10 19:41] LABS: Urine Bacteria Few (Negative)
[2024-10-10 19:42] LABS: ALT (SGPT) 23 U/L (0-35); AST (SGOT) 28 U/L (14-36); Albumin 4.8 g/dl (3.5-5.0); Alkaline Phosphatase 64 U/L (38-126); Blood Urea Nitrogen 9 mg/dl (7-17); Calcium 9.6 mg/dl (8.4-10.2); Carbon Dioxide 26 mmol/L (22-30); Chloride 103 mmol/L (98-107); Glucose 89 mg/dl (70-99); Lipase 62 U/L (23-300); Potassium 3.9 mmol/L (3.5-5.1); Sodium 136 mmol/L (135-145); Total Bilirubin 0.8 mg/dl (0.2-1.3); Total Protein 7.9 g/dl (6.3-8.2); eGFR > 60.00
[2024-10-10 20:06] VITALS: BP 128/80
[2024-10-10 21:33] VITALS: BP 134/87
[2024-10-10] MEDS: CARAFATE SUSPENSION 1 GM PO (22:07)
== END 2024-10-10 22:57 | disposition home or self-care (01) ==
LOC: EMR 18:42
PROVIDERS: Nurse Practitioner; EMERGENCY PHYSICIAN Emergency Medicine; FAMILY PHYSICIAN Emergency Medicine
DX: K21.00 Gastro-esophageal reflux disease with esophagitis, without bleeding (principal); K29.70 Gastritis, unspecified, without bleeding; R10.13 Epigastric pain
CPT/HCPCS: 99285; 96374; 96375; 96361; 96376; 74177; 80053; 81003; 81015; 83690; 84703; 85025; Q9967

== ENCOUNTER → 2024-10-23 10:50 | Outpatient (REF) | payer OTHER, SELFPAY ==
[2024-10-23 12:44] LABS: TSH Reflex To Free T4 1.32 uIU/ml (0.47-4.68)
[2024-10-23 14:17] LABS: IgA 340 mg/dl (70-400)
[2024-10-26 00:09] LABS: tTG IgA Antibody <1.02 FLU (0.00-4.99)
[2024-10-26 03:10] LABS: Endomysial IgA Antibody Titer <1:10 (<1:10)
== END ==
LOC: REG 10:50
PROVIDERS: ATTENDING PHYSICIAN Internal Medicine Gastroenterology; FAMILY PHYSICIAN Emergency Medicine
DX: R19.4 Change in bowel habit (principal)
CPT/HCPCS: 36415; 82784; 83516; 83993; 84443; 86231

== ENCOUNTER 2024-11-05 06:21 | Day surgery (SDC) | payer OTHER, SELFPAY | END 2024-11-05 14:25 | disposition home or self-care (01) | LOC: GI 06:21 | PROVIDERS: ATTENDING PHYSICIAN Internal Medicine Gastroenterology | DX: R19.4 Change in bowel habit (principal); K64.8 Other hemorrhoids; K22.89 Other specified disease of esophagus; K21.9 Gastro-esophageal reflux disease without esophagitis; K29.70 Gastritis, unspecified, without bleeding | CPT/HCPCS: 45380; 43239; 88305; 88342 ==

== ENCOUNTER → 2025-01-24 09:52 | Outpatient (REF) | payer OTHER, SELFPAY ==
[2025-01-24 10:29] LABS: % Basophils 0.7 % (0-2); % Eosinophils 1.4 % (0-6); % Immature Granulocytes 0.2 % (0-0.5); % Lymphocytes 35.8 % (20.5-51.1); % Monocytes 9.8 % (1.7-9.3); % Neutrophils 52.1 % (42.2-75.2); Absolute Eosinophils 0.1 10^3/uL (0-0.7); Absolute Monocytes 0.6 10^3/uL (0.1-0.6); Absolute Neutrophils 2.9 10^3/uL (1.4-6.5); Hematocrit 37.4 % (37.0-47.0); Hemoglobin 12.4 g/dL (12.0-16.0); Mean Corp Hgb Conc. 33.2 g/dL (33.0-37.0); Mean Corpuscular Hgb 28.8 pg (27.0-31.0); Mean Corpuscular Volume 86.8 fL (81.0-99.0); Mean Platelet Volume 11.2 fL (7.4-10.4); Nucleated Red Blood Cells % 0 %; Platelet Count 223 10^3/uL (130-400); Red Blood Cell Count 4.31 10^6/uL (4.20-5.40); Red Cell Dist. Width 13.3 % (11.5-14.5); White Blood Cell Count 5.6 10^3/uL (4.8-10.8)
[2025-01-24 10:38] LABS: ALT (SGPT) 16 U/L (0-35); AST (SGOT) 20 U/L (14-36); Albumin 4.7 g/dl (3.5-5.0); Alkaline Phosphatase 52 U/L (38-126); Blood Urea Nitrogen 18 mg/dl (7-17); Calcium 9.3 mg/dl (8.4-10.2); Carbon Dioxide 23 mmol/L (22-30); Chloride 109 mmol/L (98-107); Glucose 99 mg/dl (70-99); HDL Cholesterol 60 mg/dl; LDL Cholesterol, Calculated 106 mg/dl; Potassium 4.6 mmol/L (3.5-5.1); Sodium 139 mmol/L (135-145); Total Bilirubin 0.6 mg/dl (0.2-1.3); Total Cholesterol 179 mg/dl (50-199); Total Protein 7.7 g/dl (6.3-8.2); Triglyceride 68 mg/dl (10-149); Very Low Density Lipoprotein 13 mg/dl (0-30); eGFR > 60.00
[2025-01-24 11:09] LABS: Cortisol, Random 7.7 ug/dl; TSH Reflex To Free T4 1.57 uIU/ml (0.47-4.68)
[2025-01-24 13:02] LABS: Glycohemoglobin (HgbA1c) 5.3 % (4.0-5.6)
[2025-01-26 18:06] LABS: Number Of Markers 26 markers; Source Blood
== END ==
LOC: OLAB 09:52
PROVIDERS: Internal Medicine Hematology & Oncology; ATTENDING PHYSICIAN Internal Medicine Cardiovascular Disease
DX: Z76.89 Persons encountering health services in other specified circumstances (principal); R00.2 Palpitations; R06.09 Other forms of dyspnea; R07.89 Other chest pain; K21.9 Gastro-esophageal reflux disease without esophagitis; K44.9 Diaphragmatic hernia without obstruction or gangrene; R87.1 Abnormal level of hormones in specimens from female genital organs
CPT/HCPCS: 80053; 80061; 82533; 83036; 84443; 85025

== ENCOUNTER → 2025-01-27 11:29 | Outpatient (REF) | payer OTHER, SELFPAY | LOC: RAD 11:29 | PROVIDERS: ATTENDING PHYSICIAN Internal Medicine Hematology & Oncology; FAMILY PHYSICIAN Emergency Medicine | DX: R59.0 Localized enlarged lymph nodes (principal) | CPT/HCPCS: 71260; 74177; Q9967 ==

== ENCOUNTER 2025-05-05 01:41 | Emergency (ER) | payer OTHER, SELFPAY ==
[2025-05-05 01:43] VITALS: BP 115/65
[2025-05-05 01:53] VITALS: BMI 25.6
[2025-05-05 02:17] LABS: Hematocrit 35.3 % (37.0-47.0); Hemoglobin 11.9 g/dL (12.0-16.0); Mean Corp Hgb Conc. 33.7 g/dL (33.0-37.0); Mean Corpuscular Volume 84.4 fL (81.0-99.0); Nucleated Red Blood Cells % 0 %; Platelet Count 215 10^3/uL (130-400); Red Cell Dist. Width 13.6 % (11.5-14.5)
[2025-05-05 02:20] LABS: Urine Character Clear (Clear)
[2025-05-05 02:26] LABS: HCG, Serum Qualitative Screen Negative
[2025-05-05 02:27] LABS: Urine Squamous Cell >30 /LPF (Few)
[2025-05-05 02:28] LABS: Urine White Cell None Seen /HPF (0-5)
[2025-05-05 02:35] LABS: ALT (SGPT) 14 U/L (0-35); AST (SGOT) 19 U/L (14-36); Albumin 4.3 g/dl (3.5-5.0); Alkaline Phosphatase 57 U/L (38-126); Blood Urea Nitrogen 13 mg/dl (7-17); Calcium 8.6 mg/dl (8.4-10.2); Carbon Dioxide 24 mmol/L (22-30); Chloride 109 mmol/L (98-107); Estimated Creatinine Clearance 119 ml/min; Glucose 92 mg/dl (70-99); Lipase 69 U/L (23-300); Potassium 3.7 mmol/L (3.5-5.1); Sodium 139 mmol/L (135-145); Total Protein 6.9 g/dl (6.3-8.2); eGFR > 60.00
[2025-05-05] MEDS: TORADOL 30 MG IV (03:06)
[2025-05-05] MEDS: NSS 1000 IV (03:06)
--- NOTE | 2025-05-05 04:44 | ED.GENMED ---
History of Present Illness
General
Chief Complaint: Abdominal Pain
Source: patient
Exam Limitations: none
Time Seen by Provider: 05/05/25 02:39
Nursing documentation reviewed up to this point in time: agreed with
History of Present Illness
History of Present Illness:
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 She is concerned about the symptoms because she and her
have been trying to conceive. The patient noted that she is late for her menstrual cycle, which last occurred on March 21, normally regular and heavy. Although a home test have returned a negative result. Abdominal pain
initially mid to lower abdomen, now primarily suprapubic to left lower quadrant.
The patient reported having a fever that started today, which she managed to reduce with acetaminophen, and mentioned intermittent diarrhea for about a week. She expressed concern about possibly praveena worms from her puppy, as the puppy
recently had worms.
There is associated nausea, but she only vomited once around 10:00 AM. Urinary symptoms were denied, as were any past abdominal surgeries. The patient has not experienced similar symptoms in the past. No close contacts with similar symptoms.
No recent travel nor recent antibiotic use.
Past History
Past History
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
ED Past Surgical History: Tonsilectomy
Social History
Tobacco: Non-smoker
Alcohol: None
Drug: None
Personal:
Living: with family
Employment: Employed
Family History
Family History: Other (Noncontributory)
Phy Exam
Physical Exam
Physical Exam:
GENERAL: 34-year-old female appears her stated age, awake and alert, appears in mild to moderate discomfort, easily communicative. Currently afebrile. Hemodynamically stable.
EYE: anicteric
NECK: Supple, nontender, no meningismus, no significant adenopathy.
ENT: oral mucosa is moist. No rhinorrhea.
CARDIAC: Regular rate and rhythm. no murmur.
LUNGS: Clear breath sounds bilaterally, no acute respiratory distress, no wheezes/rales/rhonchi
ABDOMEN: Soft, nondistended, moderate tenderness left lower quadrant as well as mild tenderness suprapubic, no r/g, no cvat. normoactive BS.
NEUROLOGICAL: Alert and oriented x3, no focal neuro deficits.
SKIN: Warm and dry, normal color, skin intact. No rash.
MUSCULOSKELETAL: No C/C/E. peripheral pulses are full and equal b/l. No palpable tenderness.
PSYCH: Normal and appropriate interaction.
Sepsis
Sepsis Screening
Sepsis Assessment: Sepsis Ruled Out
Sepsis Screen
Sepsis Screen: Sepsis Ruled Out
Date: 05/05/25
Time: 05:31
Course
Orders/Labs/Results
Orders:
Orders
05/05/25 01:51
IV Insert/Care/Rem.- Treatment PRN
Straight cath- Treatment ONCE
05/05/25 02:09
Complete Blood Count/With Diff Urgent
Comprehensive Metabolic Panel Urgent
HCG, Serum Qualitative Screen Urgent
Comment: ADD ON
Lipase Urgent
Urinalysis Reflex To Culture Urgent
Date Specimen was Collected: 05/05/25
Time Specimen was Collected: 01:51
Urine Microscopic Reflex Cult Urgent
Urine Culture Urgent
AMAN Source: U
Specimen Description:
Date Specimen was Collected: 05/05/25
Time Specimen was Collected: 01:51
05/05/25 02:12
Add On- LAB Urgent
Tests Added?: Qualatative HCG
05/05/25 02:59
CT Abd/pelvis W Iv Cont Urgent
Comment:
Reason For Exam: LLQ abd pain, N/V, recent fever
0.9% Sodium Chloride 1000 ml [Nss] 1,000 ml IV BOLUS
Ketorolac [Toradol] 30 mg IV NOW STA
Abnormal Lab Results
05/05/25
02:09
RBC 4.18 L 10^6/uL
(4.20-5.40)
Hgb 11.9 L g/dL
(12.0-16.0)
Hct 35.3 L %
(37.0-47.0)
Absolute Monos (auto) 0.9 H 10^3/uL
(0.1-0.6)
Chloride 109 H mmol/L
(98-107)
Ur Occult Blood Reflex 1+ A
(Negative)
Urine RBC 3-6 A /HPF
(0-2)
Urine Bacteria (Reflex) Moderate A
(Negative)
Urine Albumin (Reflex) 1+ A
(Neg - Trace)
05/05/25 02:09
05/05/25 02:09
Vital Signs
Initial and Last Documented VS:
Initial Vital Signs
Temp Pulse Resp BP Pulse Ox
98.5 F 56 18 115/65 97
05/05/25 01:43 05/05/25 01:43 05/05/25 01:43 05/05/25 01:43 05/05/25 01:43
Last Documented Vital Signs
Temp Pulse Resp BP Pulse Ox
98.5 F 68 20 100/65 98
05/05/25 01:43 05/05/25 05:26 05/05/25 05:26 05/05/25 05:26 05/05/25 05:26
MDM/Problems Addressed
Differential Diagnosis Includes:
The Differential Diagnosis includes, in no particular order and is not limited to:
1. -related complications
2. Appendicitis
3. Gastroenteritis
4. Bowel obstruction
5. Pelvic inflammatory disease
6. Ovarian cysts/ovarian torsion
7. Urinary tract infection
8. Diverticulitis
9. Endometriosis
10. Autoimmune disorder.
MDM/Problems Addressed:
Acute abdominal pain, nausea, intermittent loose stools, low-grade fever.
Labs thus far unremarkable. hCG is negative.
Urinalysis shows moderate bacteria but appears to be a contaminated specimen with greater than 30 squamous epithelials. No WBCs seen thus not consistent with UTI. There is 3-6 RBCs thus kidney stone could be cause for symptoms.
Will medicate for pain, initiate IV fluids and will check CT abdomen and pelvis. To consider pelvic ultrasound.
*Radiology
Radiology exam reviewed: radiology read reviewed
*Pulse Oximetry
SaO2: 97
Oxygen Mode of Delivery: Room air
Patient hypoxic: no
*Critical Care Note
Total Time (30-74mins, 75-104mins- exclusive of procedures): Not Applicable
Update Note
Update Note:
05:20
Patient feeling markedly improved, pain-free after an IV dose of Toradol.
CAT scan overall unremarkable showing mild constipation. Right ovarian corpus luteum.
She remains afebrile.
Patient may have mild GI illness/gastroenteritis. Recommend bland diet. Will prescribe Zofran for as needed nausea.
Follow-up with PCP as needed.
Return precautions discussed.
ED Attending Note
-
Portions of this chart may have been created with voice recognition software.� Occasional wrong word or��sound alike� substitutions may have occurred due to the inherent limitations of voice recognition software.
Discharge Plan
Departure
Patient Disposition: Home (Routine Discharge)
Date of Disposition: 05/05/25
Time of Disposition: 05:31
Patient with high blood pressure during this ER visit?: No
Condition: Good
Discharge Problem:
Acute abdominal pain, Acute gastroenteritis, Constipation
Instructions: Constipation, Adult (DC), Abdominal Pain
Prescriptions:
New
ondansetron 4 mg tablet,disintegrating
4 mg PO QID PRN (Reason: nausea and vomiting) Qty: 20 0RF
No Action
cholecalciferol (vitamin D3) 50 mcg (2,000 unit) capsule
50 mcg PO DAILY Qty: 30 0RF
sucralfate [Carafate] 1 gram tablet
1 g PO ACHS Qty: 120 0RF
Referrals:
Naheed Martinez DO [Emergency Provider, Emergency] - As needed
Interventions
Interventions:
*Risk Screen - Suicide Last Done: 05/05/25 01:43
*Neglect/Abuse Screening Last Done: 05/05/25 01:43
*ED- Fall Risk Assessment Last Done: 05/05/25 03:10
*ED COVID-19 Vaccine History Last Done: 05/05/25 03:10
VC-Zpnoxp-Sbtrgrxfrc Assessment Last Done: 05/05/25 03:10
Discharge Date and Time
Print Language: TUNISIAN
[2025-05-05 05:26] VITALS: BP 100/65
== END 2025-05-05 05:45 | disposition home or self-care (01) ==
LOC: EMR 01:41
PROVIDERS: EMERGENCY PHYSICIAN Emergency Medicine
DX: K52.9 Noninfective gastroenteritis and colitis, unspecified (principal); K59.00 Constipation, unspecified
CPT/HCPCS: 96374; 99284; 74177; 80053; 81003; 81015; 83690; 84703; 85025; 87086; Q9967

== ENCOUNTER 2025-07-11 15:17 | Emergency (ER) | payer OTHER, SELFPAY ==
[2025-07-11 15:22] VITALS: BMI 26.0
[2025-07-11 15:34] VITALS: BP 129/90
[2025-07-11 15:42] LABS: Urine Character Clear (Clear)
[2025-07-11 15:45] LABS: HCG, Urine Qualitative Screen Negative
[2025-07-11 15:48] LABS: Hematocrit 37.3 % (37.0-47.0); Hemoglobin 12.4 g/dL (12.0-16.0); Mean Corp Hgb Conc. 33.2 g/dL (33.0-37.0); Mean Corpuscular Volume 87.8 fL (81.0-99.0); Nucleated Red Blood Cells % 0 %; Platelet Count 240 10^3/uL (130-400); Red Cell Dist. Width 13.1 % (11.5-14.5)
[2025-07-11] MEDS: TORADOL 30 MG IV (15:48)
[2025-07-11] MEDS: NSS 1000 IV (15:48)
[2025-07-11] MEDS: OMNIPAQUE 50 ML PO (15:48)
[2025-07-11] MEDS: ZOFRAN 4 MG IV (15:49)
[2025-07-11 15:50] LABS: Urine Squamous Cell 16-20 /LPF (Few)
[2025-07-11 16:00] VITALS: BP 117/81
[2025-07-11 16:01] LABS: ALT (SGPT) 16 U/L (0-35); AST (SGOT) 21 U/L (14-36); Albumin 4.7 g/dl (3.5-5.0); Alkaline Phosphatase 64 U/L (38-126); Blood Urea Nitrogen 12 mg/dl (7-17); Calcium 9.4 mg/dl (8.4-10.2); Carbon Dioxide 28 mmol/L (22-30); Chloride 101 mmol/L (98-107); Estimated Creatinine Clearance 105 ml/min; Glucose 84 mg/dl (70-99); Lipase 46 U/L (23-300); Potassium 3.9 mmol/L (3.5-5.1); Sodium 133 mmol/L (135-145); Total Protein 7.8 g/dl (6.3-8.2); eGFR > 60.00
[2025-07-11 17:00] VITALS: BP 119/78
[2025-07-11] MEDS: DILAUDID 0.5 MG IV (17:55)
--- NOTE | 2025-07-11 18:33 | ED.GENMED ---
History of Present Illness
General
Chief Complaint: Abdominal Pain
Source: patient
Exam Limitations: none
Time Seen by Provider: 07/11/25 15:21
Nursing documentation reviewed up to this point in time: agreed with
History of Present Illness
History of Present Illness:
see MDM
Past History
Past History
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
ED Past Surgical History: Tonsilectomy
Social History
Tobacco: Non-smoker
Alcohol: None
Drug: None
Personal:
Living: with family
Employment: Employed
Family History
Family History: Other (Noncontributory)
Review of Systems
Review of Systems
Allergies reviewed?: Yes
All Other Systems: Not applicable
Phy Exam
Physical Exam
Physical Exam:
GENERAL: Alert , in no apparent distress
EYE: pupils equal and reactive
NECK: Supple
ENT: o/p clr, mmm.
CARDIAC: Regular rate and rhythm .
LUNGS: Clear breath sounds bilaterally, no acute respiratory distress, no wheezes/rales/rhonchi
ABDOMEN: Soft, mild lower abd tenderness, no r/g, no cvat, normal bowel sounds
NEUROLOGICAL: Alert and oriented, no focal neuro deficits
SKIN: Warm and dry, skin intact.
MUSCULOSKELETAL: No edema, well perfused. neg joao's sign
PSYCH: Normal and appropriate interaction.
Course
Orders/Labs/Results
Orders:
Orders
07/11/25 15:24
Test Result ONCE
07/11/25 15:26
Complete Blood Count/With Diff Urgent
Comprehensive Metabolic Panel Urgent
HCG, Urine Qualitative Screen Urgent
Date Specimen was Collected: 07/11/25
Time Specimen was Collected: 15:24
Lipase Urgent
Urinalysis Reflex To Culture Urgent
Date Specimen was Collected: 07/11/25
Time Specimen was Collected: 15:21
Comment: Clean catch
Urine Microscopic Reflex Cult Urgent
Urine Culture Urgent
AMAN Source: U
Specimen Description:
Date Specimen was Collected: 07/11/25
Time Specimen was Collected: 15:21
07/11/25 15:39
0.9% Sodium Chloride 1000 ml [Nss] 1,000 ml IV BOLUS
Iohexol [Omnipaque] See Protocol PO NOW STA
Ketorolac [Toradol] 30 mg IV NOW STA
Ondansetron Injectable [Zofran] 4 mg IV NOW STA
07/11/25 15:40
CT Abd/pel W Iv And Oral Contr Urgent
Comment:
Reason For Exam: abd pain, vomiting, h/o ileus
07/11/25 17:48
HYDROmorphone [Dilaudid] 0.5 mg IV NOW STA
07/11/25 19:30
Urinalysis Reflex To Culture Urgent
Date Specimen was Collected: 07/11/25
Time Specimen was Collected: 19:29
Abnormal Lab Results
07/11/25
15:26
Abs Immat Gran (auto) 0.1 H 10^3/uL
(0-0.05)
Immature Gran % 0.9 H %
(0-0.5)
Sodium 133 L mmol/L
(135-145)
Ur Occult Blood Reflex 2+ A
(Negative)
Leukocyte Esterase Rfl 1+ A
(Negative)
Urine RBC 3-6 A /HPF
(0-2)
Urine Bacteria (Reflex) Many A
(Negative)
Urine Albumin (Reflex) 2+ A
(Neg - Trace)
07/11/25 15:26
07/11/25 15:26
Vital Signs
Initial and Last Documented VS:
Initial Vital Signs
Pulse Resp BP
69 14 129/90
07/11/25 15:34 07/11/25 15:34 07/11/25 15:34
Last Documented Vital Signs
Pulse Resp BP Pulse Ox
69 14 123/90 98
07/11/25 19:15 07/11/25 19:15 07/11/25 19:00 07/11/25 19:15
MDM/Problems Addressed
Differential Diagnosis Includes:
see MDM
MDM/Problems Addressed:
Note:
CHIEF COMPLAINT(S)
Abdominal pain
HISTORY OF PRESENT ILLNESS
The patient 34 y/o female with h/o previous ileus/constipation who presents with abdominal pain that started yesterday. She describes the pain as worsening every time she eats. She reports having vomited three times since the onset of the pain. The
patient mentions that the sensation is similar to previous episodes where she was diagnosed with possible ileus and constipation. mostly lower abdomen. no urinary symptoms.. The patient recalls previously receiving treatment that included
intravenous fluids and medication, such as Bentyl, for symptom management. She notes that she might take Bentyl frequently when experiencing similar symptoms.no fever, chills, diarrhea
last BM yesterday
no gas today
can't eat because of pain and nausea
PLAN
- The patient will receive intravenous fluids and Zofran (ondansetron) for symptom management.
- Consideration for Bentyl (dicyclomine) was discussed, given prior use.
- The administration of Toradol was suggested but not specifically accepted by the patient. Alternative discussions on pain management were not detailed.
DIFFERENTIAL DIAGNOSIS
The Differential Diagnosis includes, in no particular order and is not limited to:
1. Gastroenteritis
2. Constipation
3. Appendicitis
4. Peptic ulcer disease
5. Gastritis
6. Cholecystitis
7. Bowel obstruction
8. Gastroesophageal reflux disease (GERD)
9. Irritable Bowel Syndrome (IBS)
10. Pancreatitis
CARE-UPDATE
07/11/25 - 17:47
pt is presenting with mid to lower abd pain, vomiting x 3 since lastn ight
similar to previosu ileus/enteritis
has had some other episodes without diagnosis, just constipation
today,. The pain relief provided by Toradol was temporary, as the pain returned. The urine sample was deemed contaminated, likely due to squamous cells, with leukocytes and white cells present, raising suspicion of a possible urinary infection.
However, a definitive diagnosis of a UTI is pending. The patient agreed to provide another urine sample for clarification. Pain level was reported as a seven/10 now; will try dilaudid
pending CT report
.07/11/25 - 19:18
ct report no signs of obstruction or ileus
appendix not visualized
but no signs of appendicitis
pain resolved
mrialax
outpatient GI f/u recommended
*Pulse Oximetry
SaO2: 99
Patient hypoxic: no (98)
*Critical Care Note
Total Time (30-74mins, 75-104mins- exclusive of procedures): Not Applicable
ED Attending Note
-
Portions of this chart may have been created with voice recognition software.� Occasional wrong word or��sound alike� substitutions may have occurred due to the inherent limitations of voice recognition software.
Discharge Plan
Departure
Patient Disposition: Home (Routine Discharge)
Date of Disposition: 07/11/25
Time of Disposition: 19:24
Patient with high blood pressure during this ER visit?: No
Condition: Fair
Covid-19: Not Applicable
Discharge Problem:
Abdominal pain
Instructions: Constipation, Adult (DC), Abdominal Pain
Prescriptions:
No Action
cholecalciferol (vitamin D3) 50 mcg (2,000 unit) capsule
50 mcg PO DAILY Qty: 30 0RF
sucralfate [Carafate] 1 gram tablet
1 g PO ACHS Qty: 120 0RF
ondansetron 4 mg tablet,disintegrating
4 mg PO QID PRN (Reason: nausea and vomiting) Qty: 20 0RF
Referrals:
Naheed Martinez, DO [Family Provider, Emergency] - Follow up in 2-3 days
Activity Restrictions/Additional Instructions:
YOUR BLOOD WORK WAS REASSURING
YOUR CAT SCAN SHOWED SOME STOOL BUT NO BOWEL OBSTRUCTION
NO OBVIOUS SIGNS OF APPENDICITIS
BLAND DIET
TYLENOL, BENTYL FOR PAIN
MIRALAX TWICEA DAY FOR 2-3 DAYS TO HELP WITH STOOL BURDEN
RETURN FO RANY CONCERNS
CONSIDER FOLLOW UP WITH GI.
Interventions
Interventions:
*Risk Screen - Suicide Last Done: 07/11/25 15:23
*General Assessment Last Done: 07/11/25 15:23
*Neglect/Abuse Screening Last Done: 07/11/25 15:23
*ED- Fall Risk Assessment Last Done: 07/11/25 15:22
*ED COVID-19 Vaccine History Last Done: 07/11/25 15:22
*ED Influenza Vaccine History Last Done: 07/11/25 15:22
*Nursing Disposition Last Done: 07/11/25 19:33
RL-Fzshze-Lrakpqzequ Assessment Last Done: 07/11/25 15:35
Discharge Date and Time
Print Language: MACEDONIAN
[2025-07-11 18:42] VITALS: BP 116/95
[2025-07-11 19:00] VITALS: BP 123/90
[2025-07-11 19:40] LABS: Urine Character Clear (Clear)
== END 2025-07-11 19:53 | disposition home or self-care (01) ==
LOC: EMR 15:17
PROVIDERS: Physician Assistant; EMERGENCY PHYSICIAN Emergency Medicine; FAMILY PHYSICIAN Emergency Medicine
DX: R10.30 Lower abdominal pain, unspecified (principal); Z87.19 Personal history of other diseases of the digestive system; Z86.018 Personal history of other benign neoplasm
CPT/HCPCS: 99284; 96374; 96375 ×2; 96361; 74177; 80053; 81003; 81015; 81025; 83690; 85025; 87086; Q9967

== ENCOUNTER 2025-08-04 07:30 | Emergency (ER) | payer OTHER, SELFPAY ==
[2025-08-04 07:40] VITALS: BP 105/67
[2025-08-04 07:59] VITALS: BMI 26.7
--- NOTE | 2025-08-04 08:10 | ED.GENMED ---
History of Present Illness
General
Chief Complaint: Abdominal Pain
Source: patient
Exam Limitations: none
Time Seen by Provider: 08/04/25 08:09
Nursing documentation reviewed up to this point in time: agreed with
History of Present Illness
History of Present Illness:
34 female presents to the ER for evaluation. Patient reports she has a history of intermittent constipation and previous ileus. She reports she has had symptoms like this for the past 1 year. For the past 3 days she has had nausea vomiting. She
last moved her bowels 4 days ago. She vomited several times yesterday last at 11 PM. She has taken several doses of Bentyl along with ibuprofen and Tylenol. She has tried several enemas without relief. She has been evaluated for GI for this and
has had endoscopy and colonoscopy. She has had biopsies done of her colon which were negative for microscopic colitis. She currently has her menses.
Past History
Past History
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
ED Past Surgical History: Tonsilectomy
Social History
Tobacco: Non-smoker
Alcohol: None
Drug: None
Personal:
Living: with family
Employment: Employed
Family History
Family History: Other (Noncontributory)
Phy Exam
General Physical Exam
General Presentation: no apparent distress
General age: appears stated age
General Skin: warm and dry
General Habitus: normal
General Mental: alert
General Hydration: appears well hydrated
Gastrointestinal Exam
Gastrointestinal Exam: soft and other (non specific lower abd tenderness yeah 1 we I think so I will you call the daughter yeah that she will like this is no call okay 1 second 1 second I bet you that hospice call her I will talk to her I do not I
am like I talked to you earlier today I so so it is probably the admitting doctor which on )
Neurological Exam
Neurological Exam: alert and oriented x3
Musculoskeletal Exam
Musculoskeletal Exam: full ROM
Skin Exam
Skin Exam: normal color and warm/dry
Psychiatric Exam
Psychiatric Exam: normal mood/affect
Course
Orders/Labs/Results
Orders:
Orders
08/04/25 07:56
Test Result ONCE
08/04/25 07:57
Complete Blood Count/With Diff Urgent
Comprehensive Metabolic Panel Urgent
HCG, Serum Qualitative Screen Urgent
Lipase Urgent
08/04/25 08:28
0.9% Sodium Chloride 1000 ml [Nss] 1,000 ml IV BOLUS
Ketorolac [Toradol] 15 mg IV NOW STA
Ondansetron Injectable [Zofran] 4 mg IV NOW STA
08/04/25 08:35
Urinalysis Reflex To Culture Urgent
Date Specimen was Collected: 08/04/25
Time Specimen was Collected: 08:33
Urine Microscopic Reflex Cult Urgent
08/04/25 08:39
Obstruct Series W/PA Chest [CR Obstruct Series W/pa Chest] Urgent
Comment:
Reason For Exam: constipation
08/04/25 12:47
Ketorolac [Toradol] 15 mg .ROUTE .STK-MED ONE
08/04/25 12:48
Ketorolac [Toradol] 15 mg IV NOW STA
Abnormal Lab Results
08/04/25 08/04/25
07:57 08:35
Absolute Monos (auto) 0.7 H 10^3/uL
(0.1-0.6)
Monocytes % 10.1 H %
(1.7-9.3)
Glucose 107 H mg/dl
(70-99)
Ur Occult Blood Reflex 4+ A
(Negative)
Urine RBC 16-20 A /HPF
(0-2)
Urine Bacteria (Reflex) Few A
(Negative)
Urine Albumin (Reflex) 1+ A
(Neg - Trace)
08/04/25 07:57
08/04/25 07:57
Vital Signs
Initial and Last Documented VS:
Initial Vital Signs
Temp Pulse Resp BP Pulse Ox
98.2 F 76 17 105/67 100
08/04/25 07:40 08/04/25 07:40 08/04/25 07:40 08/04/25 07:40 08/04/25 07:40
Last Documented Vital Signs
Temp Pulse Resp BP Pulse Ox
98.2 F 74 16 110/65 99
08/04/25 07:40 08/04/25 10:15 08/04/25 10:15 08/04/25 10:15 08/04/25 10:15
Roll Plugger Machine Operator consulted with Physician
Roll Plugger Machine Operator consulted with physician?: Yes
Name of Physician Consulted: Theodora
MDM/Problems Addressed
Differential Diagnosis Includes:
Not limited to constipation enteritis, colitis, irritable bowel syndrome, ileus, obstruction
MDM/Problems Addressed:
As documented patient is a 34-year-old female who has had intermittent issues with abdominal pain constipation. She has had several CAT scans in the past and has been evaluated by GI with no clear diagnosis. She had biopsies done which were
negative for microscopic colitis. Patient presents with constipation abdominal pain. We discussed holding off on CAT scan as she has had 2 in the past several months as well as several other CAT scans previously. will Order obstruction series.
Abdomen soft nonspecific mild abdominal tenderness. She denies any fever chills she is afebrile vital signs are stable white count is normal chemistry is unremarkable. Urine shows trace amount of blood she does have her menses currently at this
time. Patient was given fluids Toradol Zofran. She has not vomited here.
Obstruction series negative for bowel obstruction; there is mild to moderate diffuse colonic stool burden which may reflect constipation. Offered patient enema however she would like to go home. She has mag citrate at home will have her continue
Colace and MiraLAX as well. Discussed increasing water intake high-fiber diet fresh fruits and vegetables avoiding constipating foods. Discussed close outpatient follow-up with GI and family doctor. I also discussed the possibility of follow-up
with gynecology for other causes of abdominal pain however she does feel that this is typically associate with constipation.
Patient would like to go home
*Radiology
Radiology exam reviewed: radiology read reviewed
*Pulse Oximetry
SaO2: 100
Oxygen Mode of Delivery: Room air
Patient hypoxic: no
*Critical Care Note
Total Time (30-74mins, 75-104mins- exclusive of procedures): Not Applicable
Data Reviewed
Review of Other/Old Records Reveals: Radiology Studies and Other (Previous visits and radiology reports)
Source: patient
ED Attending Note
-
Portions of this chart may have been created with voice recognition software.� Occasional wrong word or��sound alike� substitutions may have occurred due to the inherent limitations of voice recognition software.
Discharge Plan
Departure
Patient Disposition: Home (Routine Discharge)
Date of Disposition: 08/04/25
Time of Disposition: 14:20
Patient with high blood pressure during this ER visit?: No
Condition: Fair
Covid-19: Not Applicable
Discharge Problem:
Abdominal pain, Constipation
Instructions: Constipation, Adult (DC), Abdominal Pain
Prescriptions:
No Action
cholecalciferol (vitamin D3) 50 mcg (2,000 unit) capsule
50 mcg PO DAILY Qty: 30 0RF
sucralfate [Carafate] 1 gram tablet
1 g PO ACHS Qty: 120 0RF
ondansetron 4 mg tablet,disintegrating
4 mg PO QID PRN (Reason: nausea and vomiting) Qty: 20 0RF
Referrals:
Naheed Martinez DO [Family Provider, Emergency]
Activity Restrictions/Additional Instructions:
Follow-up with your family doctor and GI as discussed in the next 4 days. In addition please follow-up with your group counselor as well for further evaluation of symptoms.
Increase water intake increase diet high in fresh fruits and vegetables high-fiber diet. Avoid constipating foods such as bananas, breads,pastas.
Return if any worsening of symptoms
Interventions
Interventions:
*General Assessment Last Done: 08/04/25 07:40
*Neglect/Abuse Screening Last Done: 08/04/25 07:40
*ED COVID-19 Vaccine History Last Done: 08/04/25 07:48
*ED Influenza Vaccine History Last Done: 08/04/25 07:48
[facility] Fall Risk Assessment Tool Last Done: 08/04/25 07:48
*Risk Screen - Suicide (C-SSRS) Last Done: 08/04/25 07:59
UZ-Yiuiqm-Afzzlqclma Assessment Last Done: 08/04/25 07:48
Discharge Date and Time
Print Language: MONTENEGRIN
[2025-08-04 08:14] LABS: HCG, Serum Qualitative Screen Negative
[2025-08-04 08:19] LABS: ALT (SGPT) 18 U/L (0-35); AST (SGOT) 21 U/L (14-36); Albumin 4.3 g/dl (3.5-5.0); Alkaline Phosphatase 64 U/L (38-126); Blood Urea Nitrogen 14 mg/dl (7-17); Calcium 8.9 mg/dl (8.4-10.2); Carbon Dioxide 25 mmol/L (22-30); Chloride 103 mmol/L (98-107); Estimated Creatinine Clearance 119 ml/min; Glucose 107 mg/dl (70-99); Lipase 67 U/L (23-300); Potassium 4.2 mmol/L (3.5-5.1); Sodium 135 mmol/L (135-145); Total Protein 7.3 g/dl (6.3-8.2); eGFR > 60.00
[2025-08-04 08:20] LABS: Hematocrit 37.8 % (37.0-47.0); Hemoglobin 12.7 g/dL (12.0-16.0); Mean Corp Hgb Conc. 33.6 g/dL (33.0-37.0); Mean Corpuscular Volume 85.9 fL (81.0-99.0); Nucleated Red Blood Cells % 0 %; Platelet Count 249 10^3/uL (130-400); Red Cell Dist. Width 13.1 % (11.5-14.5)
[2025-08-04] MEDS: ZOFRAN 4 MG IV (08:31)
[2025-08-04] MEDS: NSS 1000 IV (08:31)
[2025-08-04] MEDS: TORADOL 15 MG IV ×2 (08:31→12:49)
[2025-08-04 08:49] LABS: Urine Character Clear (Clear)
[2025-08-04 09:06] LABS: Urine Squamous Cell >30 /LPF (Few)
[2025-08-04 09:07] LABS: Urine Red Blood Cell 16-20 /HPF (0-2)
[2025-08-04 10:15] VITALS: BP 110/65
[2025-08-04 14:33] VITALS: BP 126/74
== END 2025-08-04 14:34 | disposition home or self-care (01) ==
LOC: EMR 07:30
PROVIDERS: Emergency Medicine; EMERGENCY PHYSICIAN Student in an Organized Health Care Education/Training Program; FAMILY PHYSICIAN Emergency Medicine
DX: K59.00 Constipation, unspecified (principal); R10.9 Unspecified abdominal pain; R11.2 Nausea with vomiting, unspecified
CPT/HCPCS: 99284; 96374; 96375; 96376; 96361; 74022; 80053; 81003; 81015; 83690; 84703; 85025